=== PATIENT | female | born 1975 | race Caucasian/White ===

== ENCOUNTER 2021-02-04 16:49 | Emergency (ER) | payer MEDICARE, MEDICAID ==
[~2021-02-04 16:49] MED LIST: AUGMENTIN 875875 MG PO; IBUPROFEN 600600 M1 PO; NOHOMEMEDICATIONS; PROMETHAZINE12.5 M1 PO; TRAMADOL 50 MG50 MG PO; ULTRAM 50MG TAB50 MG PO
== END 2021-02-04 17:04 | disposition left against medical advice (07) ==
LOC: M.ERS 16:49 → EDSTATUS 17:06 → M.ERS 19:37
DX: Z53.21 Procedure and treatment not carried out due to patient leaving prior to being seen by health care provider (principal)